=== PATIENT | male | born 1985 | race Caucasian/White ===

== ENCOUNTER 2023-05-27 09:21 | Outpatient (REF) | payer OTHER, SELFPAY ==
[2023-05-31 15:07] LABS: Testosterone, Total 353 ng/dL (250-1100)
== END 2023-05-27 09:22 | disposition home or self-care (01) ==
LOC: HO.CHCLDS 09:21
PROVIDERS: Visit Provider Internal Medicine
DX: N52.9 Male erectile dysfunction, unspecified (principal)
CPT/HCPCS: 36415; 84403